=== PATIENT | male | born 1975 | race Caucasian/White ===

== ENCOUNTER 2017-12-24 17:05 | Emergency (ER) | payer OTHER ==
[2017-12-24] MEDS ORDERED: PROPARACAINE 0.5% OPHTH DROPS 15 ML BTL RIGHT EYE STA (19:09)
--- NOTE | 2017-12-24 19:31 | ED ---
Eye Problem HPI - General Chief complaint: Eye Problems Stated complaint: eye injury Time Seen by Provider: 12/24/17 17:20 Source: patient, RN notes reviewed Mode of arrival: ambulatory Limitations: no limitations - History of Present Illness Initial comments: This is a 42-year-old male who presents to the emergency department with chief complaint of right eye injury. Patient states that 5 hours ago he woke up from a nap and felt like he had scratched his eye while he was sleeping. Patient can complains of photophobia and a mild pain. He denies any vision changes. He complains of excessive tearing. He is not a contact lens wearer. Denies fever, chills, chest pain, shortness of breath, abdominal pain, nausea or vomiting, constipation or diarrhea, dysuria or hematuria, numbness or tingling, headache or vision changes. - Related Data Home Medications Medication Instructions Recorded Confirmed Methadone HCl [Methadone Intensol] 215 mg PO DAILY 09/23/17 09/23/17 Allergies Allergy/AdvReac Type Severity Reaction Status Date / Time shellfish derived Allergy Rash/Hives Verified 12/24/17 17:17 Review of Systems ROS Statement: Those systems with pertinent positive or pertinent negative responses have been documented in the HPI. ROS Other: All systems not noted in ROS Statement are negative. Past Medical History Additional Past Medical History / Comment(s): c spine fx 2007 History of Any Multi-Drug Resistant Organisms: None Reported Past Surgical History: Hernia Repair Additional Past Surgical History / Comment(s): c4-7 fusion Past Psychological History: Anxiety Smoking Status: Current every day smoker Past Alcohol Use History: None Reported Past Drug Use History: Heroin General Exam - General Exam Comments Initial Comments: General: Awake and alert, well-developed; in no apparent distress. HEENT: Head atraumatic, normocephalic. Pupils are equal, round and reactive to light. Extraocular movements intact. Right conjunctiva is injected. Tearing is noted. On fluorescein staining, no corneal abrasions or ulcers are noted. Oropharynx moist without erythema or exudate. Neck: Supple. Normal ROM. Cardiovascular: Regular rate and rhythm. No murmurs, rubs or gallops. Chest symmetrical. Respiratory: Lungs clear to auscultation bilaterally. No wheezes, rales or rhonchi. Normal respiratory effort with no use of accessory muscles. Musculoskeletal: Normal ROM, no tenderness bilateral upper and lower extremities. Ambulating normally. Neurological: Alert and oriented x3. CN II-XII grossly intact. Speech is fluent and answers are appropriate. No focal neuro deficits. Psychiatric: Normal mood and affect. No overt signs of depression or anxiety noted. Limitations: no limitations Course Vital Signs 12/24/17 12/24/17 17:16 19:55 Temperature 98.8 F 97.8 F Pulse Rate 94 66 Respiratory 20 18 Rate Blood Pressure 144/75 125/74 O2 Sat by Pulse 99 97 Oximetry Medical Decision Making - Medical Decision Making This is a 42-year-old male who presents to the emergency department with a chief complaint of right eye injury. Patient states he believes he scratched his eye while napping earlier today. Denies any vision changes. He does complain of excessive tearing and mild pain. On fluorescein staining, no evidence for corneal abrasion or ulcer are noted. Right conjunctiva is injected. Extraocular movements are intact. Patient's vital signs are stable and he is in no acute distress. He will be discharged home. Patient will be given erythromycin ointment. He is in agreement and voices understanding. All questions were answered. Disposition Clinical Impression: Eye irritation Disposition: HOME SELF-CARE Condition: Good Instructions: Erythromycin (Into the eye), Corneal Abrasion (ED) Additional Instructions: Please apply a half centimeter ribbon of ointment to the affected eye 4 times a day for the next 3-5 days. Please follow up with primary care provider within 1- 2 days. Return to emergency department if symptoms should worsen or any concerns arise. Referrals: Andrei Queen MD [Primary Care Provider] - 1-2 days Time of Disposition: 19:46
[2017-12-24] MEDS ORDERED: ERYTHROMYCIN 5 MG/GM OPHTH OINT 3.5 GM TUBE RIGHT EYE STA (19:45)
[2017-12-24 19:56] VITALS: BP 125/74; PULSE 66; RESP 18; TEMP 97.8
== END 2017-12-24 20:15 | disposition home or self-care (01) ==
LOC: EC 17:05
DX: H57.8 Other specified disorders of eye and adnexa (principal); F17.200 Nicotine dependence, unspecified, uncomplicated; Z91.013 Allergy to seafood; Z79.891 Long term (current) use of opiate analgesic
CPT/HCPCS: 99283

== ENCOUNTER 2018-05-19 22:25 | Emergency (ER) | payer OTHER ==
[2018-05-19 22:54] VITALS: BP 140/82; PULSE 100; RESP 20; TEMP 98.3
--- NOTE | 2018-05-20 01:24 | ED ---
General Adult HPI - General Chief complaint: Wound/Laceration Stated complaint: IHS/Lac Finger Time Seen by Provider: 05/20/18 00:34 Source: patient, family, RN notes reviewed Mode of arrival: ambulatory Limitations: no limitations - History of Present Illness Initial comments: 42-year-old male presents to the emergency department for a chief complaint of laceration 3 hours. Patient states he was working on a machine with his hand inside when he went to pull it out and lacerated his left second digit. Patient states he is up-to-date on tetanus within the last year. Patient denies any other injuries. Patient denies fevers or chills at home. Patient has no other complaints at this time including shortness of breath, chest pain, abdominal pain, nausea or vomiting, headache, or visual changes. - Related Data Home Medications Medication Instructions Recorded Confirmed Methadone HCl [Methadone Intensol] 215 mg PO DAILY 09/23/17 05/19/18 Allergies Allergy/AdvReac Type Severity Reaction Status Date / Time shellfish derived Allergy Rash/Hives Verified 05/19/18 22:54 Review of Systems ROS Statement: Those systems with pertinent positive or pertinent negative responses have been documented in the HPI. ROS Other: All systems not noted in ROS Statement are negative. Past Medical History Additional Past Medical History / Comment(s): c spine fx 2007 History of Any Multi-Drug Resistant Organisms: None Reported Past Surgical History: Hernia Repair Additional Past Surgical History / Comment(s): c4-7 fusion Past Psychological History: Anxiety Smoking Status: Current every day smoker Past Alcohol Use History: None Reported Past Drug Use History: Heroin General Exam Limitations: no limitations General appearance: alert, in no apparent distress Head exam: Present: atraumatic, normocephalic, normal inspection Eye exam: Present: normal appearance. Absent: scleral icterus, conjunctival injection ENT exam: Present: normal exam, mucous membranes moist Neck exam: Present: normal inspection, full ROM. Absent: tenderness, meningismus, lymphadenopathy Respiratory exam: Present: normal lung sounds bilaterally. Absent: respiratory distress, wheezes, rales, rhonchi, stridor Cardiovascular Exam: Present: regular rate, normal rhythm, normal heart sounds. Absent: systolic murmur, diastolic murmur, rubs, gallop, clicks Extremities exam: Present: full ROM (Full range of motion of the second digit left hand), normal capillary refill (Capillary refill less than 2 seconds and radial pulse 2+), other (Patient has a 1.5 cm laceration on the proximal phalanx of the left third finger. No signs of infection noted such as spreading redness or drainage.). Absent: tenderness Neurological exam: Present: alert, oriented X3, CN II-XII intact Psychiatric exam: Present: normal affect, normal mood Course Vital Signs 05/19/18 22:52 Temperature 98.3 F Pulse Rate 100 Respiratory 20 Rate Blood Pressure 140/82 O2 Sat by Pulse 100 Oximetry Procedures - Procedures Initial comment: Body area: Dorsal left second digit proximal phalanx Laceration length: 1.5 cm Foreign bodies: no foreign bodies Tendon involvement: none Nerve involvement: none Vascular damage: no Anesthesia: local infiltration Local anesthetic: 1 mL 1% lidocaine Preparation: Patient was prepped and draped in the usual sterile fashion. Irrigation solution: saline Irrigation method: saline Skin closure:5-0 Ethilon using sterile technique Number of sutures: 4 Technique: interupted Dressing: antibiotic ointment/ gauze Patient tolerance: Patient tolerated the procedure well with no immediate complications. Medical Decision Making - Medical Decision Making 42-year-old male presents to the emergency department for a chief complaint of laceration to the left second digit 3 hours ago. Patient aspirated it on a blade inside machinery. Patient is up-to-date on tetanus. Patient is full range of motion of the digit. Neurovascular intact. He shouldn't refuses x- ray. I did discuss the risks versus benefits of x-rays including infection and foreign body. Patient states he does not think he hit bone and does not think anything is in the finger and refuses at this time. Finger was soaked and soap and water and cleaned thoroughly with iodine. Finger was sutured. Patient given return precautions and told to return in 7-10 days. Disposition Clinical Impression: Laceration Disposition: HOME SELF-CARE Condition: Good Instructions: Care For Your Stitches (ED), Laceration (ED) Additional Instructions: Please follow up with primary care in 1-2 days. Please take Motrin and Tylenol for pain. Monitor for signs of infection such as spreading redness or streaking redness and return if these occur. Return to the emergency department have sutures removed in 7-10 days. Return to the emergency department if you have any other worsening symptoms. Is patient prescribed a controlled substance at d/c from ED?: No Referrals: Guillermo Real MD [STAFF PHYSICIAN] - 1-2 days Time of Disposition: 01:31
== END 2018-05-20 02:06 | disposition home or self-care (01) ==
LOC: EC 22:25
DX: S61.211A Laceration without foreign body of left index finger without damage to nail, initial encounter (principal); F41.9 Anxiety disorder, unspecified; F17.200 Nicotine dependence, unspecified, uncomplicated; Z79.899 Other long term (current) drug therapy; Z91.013 Allergy to seafood; W31.89XA Contact with other specified machinery, initial encounter; Y92.69 Other specified industrial and construction area as the place of occurrence of the external cause; Y99.0 Civilian activity done for income or pay
CPT/HCPCS: 12001; 99282